=== PATIENT | female | born 1990 | race Two or more races ===

== ENCOUNTER 2017-01-29 16:01 | Emergency (ER) | payer OTHER ==
[2017-01-29] MEDS ORDERED: Meperidine SYRINGE* 50 MG/ML IV ONE (16:42)
[2017-01-29] MEDS ORDERED: PROCHLORPERAZINE INJ 5 MG/ML 2 ML VIAL IV PRN (16:42)
[2017-01-29] MEDS ORDERED: PROCHLORPERAZINE INJ 5 MG/ML 2 ML VIAL ONE (17:16)
[2017-01-29 17:33] LABS: Hematocrit 38 % (35-47); Hemoglobin 12.9 g/dl (12.0-16.0); Mean Corpuscular HGB Conc 34 g/dl (31-36); Mean Corpuscular Hemoglobin 30 pg (27-31); Mean Corpuscular Volume 89 fL (80-97); Mean Platelet Volume 8 um3 (7.4-10.4); Red Blood Count 4.24 10^6/ul (4.0-5.4); Red Cell Distribution Width 13 % (10.5-15); White Blood Count 11.2 10^3/ul (3.5-10.8)
[2017-01-29 18:12] LABS: Urine Bacteria Absent (Absent); Urine Bilirubin Negative (Negative); Urine Glucose Negative (Negative); Urine Nitrite Negative (Negative)
--- NOTE | 2017-01-29 18:14 | RAD ---
INDICATION: Right upper quadrant pain. COMPARISON: There are no prior studies available for comparison. TECHNIQUE: Multiple real-time images of the right upper quadrant were obtained. FINDINGS: The gallbladder is contracted. The patient was not n.p.o. for the study. There is mild gallbladder wall thickening which is consistent with the contracted state. No gallstones or pericholecystic fluid is present. No positive sonographic Prater sign was noted. No intra or extrahepatic ductal distention is present. The common bile duct measured 0.4 cm in diameter. The liver is normal in size without significant focal abnormality. The pancreas is partially obscured by overlying bowel gas. The right kidney is normal in size without evidence for hydronephrosis. IMPRESSION: SLIGHTLY LIMITED STUDY DUE TO CONTRACTED GALLBLADDER OTHERWISE UNREMARKABLE EXAM.
[2017-01-29 18:38] LABS: Albumin 4.7 g/dL (3.2-5.2); BUN/Creatinine Ratio 17.4 (8-20); C Reactive Protein 5.18 mg/L (< 5.00); Calcium 9.5 mg/dL (8.6-10.3); EGFR African American 131.3 (>60); EGFR Non-African American 102.1 (>60); Globulin 3.4 g/dL (2-4); Potassium 5.3 mmol/L (3.5-5.0); Total Bilirubin 0.3 mg/dL (0.2-1.0); Total Protein 8.1 g/dL (6.4-8.9)
[2017-01-29 19:05] VITALS: BP 115/69
--- NOTE | 2017-01-29 19:12 | ED ---
Otilio Fang Nikita, scribed for Darius Velásquez MD on 01/29/17 at 1650 . Abdominal Pain/Female - HPI Summary HPI Summary: This patient is a 26 year old F presenting to ED with a chief complaint of upper abdominal pain since 1400. The patient rates the pain 7-8/10 in severity. Symptoms aggravated by nothing. Symptoms alleviated by nothing. Patient reports nausea. Pt has been watching what she ate; she had a sandwich earlier today. In November, pt had an US in [place] and was found with gallbladder sludge. - History of Current Complaint Chief Complaint: EDAbdPain Stated Complaint: ABD PAIN Time Seen by Provider: 01/29/17 16:35 Hx Obtained From: Patient Onset/Duration: Sudden Onset - 1400, Lasting Hours, Still Present Timing: Constant Severity Initially: Severe Severity Currently: Severe Pain Intensity: 8 Pain Scale Used: 0-10 Numeric Location: Other - Upper abdominal pain Radiates: No Aggravating Factor(s): Nothing Alleviating Factor(s): Nothing Associated Signs and Symptoms: Positive: Nausea Allergies/Adverse Reactions: Allergies Allergy/AdvReac Type Severity Reaction Status Date / Time No Known Allergies Allergy Verified 01/29/17 16:17 PMH/Surg Hx/FS Hx/Imm Hx Endocrine/Hematology History: Denies: Hx Diabetes Cardiovascular History: Denies: Hx Coronary Artery Disease, Hx Hypertension Infectious Disease History: No Infectious Disease History: Denies: Traveled Outside the US in Last 30 Days - Family History Known Family History: Negative: Cardiac Disease, Hypertension, Diabetes - Social History Alcohol Use: Rare Substance Use Type: Reports: None Smoking Status (MU): Light Every Day Tobacco Smoker Review of Systems Negative: Fever Positive: Abdominal Pain - Upper abdominal pain, Nausea All Other Systems Reviewed And Are Negative: Yes Physical Exam Triage Information Reviewed: Yes Vital Signs On Initial Exam: Initial Vitals Temp Pulse Resp BP Pulse Ox 97.9 F 70 16 159/71 100 01/29/17 16:11 01/29/17 16:11 01/29/17 16:11 01/29/17 16:11 01/29/17 16:11 Vital Signs Reviewed: Yes Appearance: Positive: Well-Appearing, No Pain Distress Skin: Positive: Warm, Skin Color Reflects Adequate Perfusion, Dry Head/Face: Positive: Normal Head/Face Inspection Eyes: Positive: Normal ENT: Positive: Normal ENT inspection Neck: Positive: Supple, Nontender Respiratory/Lung Sounds: Positive: Clear to Auscultation, Breath Sounds Present Cardiovascular: Positive: RRR Abdomen Description: Positive: Soft, Other: - Positive Prater's Sign Bowel Sounds: Positive: Present Musculoskeletal: Positive: Normal Neurological: Positive: Normal, Sensory/Motor Intact, Alert, Oriented to Person Place, Time, CN Intact II-III Psychiatric: Positive: Affect/Mood Appropriate - [place] Coma Scale Coma Scale Total: 15 Diagnostics - Vital Signs Vital Signs Temp Pulse Resp BP Pulse Ox 01/29/17 16:11 97.9 F 70 16 159/71 100 - Laboratory Lab Results: Lab Results 01/29/17 01/29/17 01/29/17 Range/Units 17:15 17:15 17:15 WBC 11.2 H (3.5-10.8) 10^3/ul RBC 4.24 (4.0-5.4) 10^6/ul Hgb 12.9 (12.0-16.0) g/dl Hct 38 (35-47) % MCV 89 (80-97) fL MCH 30 (27-31) pg MCHC 34 (31-36) g/dl RDW 13 (10.5-15) % Plt Count 356 (150-450) 10^3/ul MPV 8 (7.4-10.4) um3 Neut % (Auto) 66.0 (38-83) % Lymph % (Auto) 26.4 (25-47) % [place] % (Auto) 4.3 (1-9) % Eos % (Auto) 2.6 (0-6) % Baso % (Auto) 0.7 (0-2) % Absolute Neuts (auto) 7.4 (1.5-7.7) 10^3/ul Absolute Lymphs (auto) 2.9 (1.0-4.8) 10^3/ul Absolute Monos (auto) 0.5 (0-0.8) 10^3/ul Absolute Eos (auto) 0.3 (0-0.6) 10^3/ul Absolute Basos (auto) 0.1 (0-0.2) 10^3/ul Absolute Nucleated RBC 0.01 10^3/ul Nucleated RBC % 0 Sodium 136 (133-145) mmol/L Potassium 5.3 H (3.5-5.0) mmol/L Chloride 103 (101-111) mmol/L Carbon Dioxide 25 (22-32) mmol/L Anion Gap 8 (2-11) mmol/L BUN 12 (6-24) mg/dL Creatinine 0.69 (0.51-0.95) mg/dL Est GFR ( Amer) 131.3 (>60) Est GFR (Non-Af Amer) 102.1 (>60) BUN/Creatinine Ratio 17.4 (8-20) Glucose 94 (70-100) mg/dL Lactic Acid 0.8 (0.5-2.0) mmol/L Calcium 9.5 (8.6-10.3) mg/dL Total Bilirubin 0.30 (0.2-1.0) mg/dL AST 40 H (13-39) U/L ALT 20 (7-52) U/L Alkaline Phosphatase 79 (34-104) U/L C-Reactive Protein 5.18 H (< 5.00) mg/L Total Protein 8.1 (6.4-8.9) g/dL Albumin 4.7 (3.2-5.2) g/dL Globulin 3.4 (2-4) g/dL Albumin/Globulin Ratio 1.4 (1-3) Lipase 36 (11.0-82.0) U/L Beta HCG, Quant 0.90 mIU/mL Urine Color Urine Appearance Urine pH (5-9) Ur Specific [employer] (1.010-1.030) Urine Protein (Negative) Urine Ketones (Negative) Urine Blood (Negative) Urine Nitrate (Negative) Urine Bilirubin (Negative) Urine Urobilinogen (Negative) Ur Leukocyte Esterase (Negative) Urine WBC (Auto) (Absent) Urine RBC (Auto) (Absent) Ur Squamous Epith Cells (Absent) Amorphous Crystals (Absent) Urine Bacteria (Absent) Urine Glucose (Negative) 01/29/17 Range/Units 17:40 WBC (3.5-10.8) 10^3/ul RBC (4.0-5.4) 10^6/ul Hgb (12.0-16.0) g/dl Hct (35-47) % MCV (80-97) fL MCH (27-31) pg MCHC (31-36) g/dl RDW (10.5-15) % Plt Count (150-450) 10^3/ul MPV (7.4-10.4) um3 Neut % (Auto) (38-83) % Lymph % (Auto) (25-47) % [place] % (Auto) (1-9) % Eos % (Auto) (0-6) % Baso % (Auto) (0-2) % Absolute Neuts (auto) (1.5-7.7) 10^3/ul Absolute Lymphs (auto) (1.0-4.8) 10^3/ul Absolute Monos (auto) (0-0.8) 10^3/ul Absolute Eos (auto) (0-0.6) 10^3/ul Absolute Basos (auto) (0-0.2) 10^3/ul Absolute Nucleated RBC 10^3/ul Nucleated RBC % Sodium (133-145) mmol/L Potassium (3.5-5.0) mmol/L Chloride (101-111) mmol/L Carbon Dioxide (22-32) mmol/L Anion Gap (2-11) mmol/L BUN (6-24) mg/dL Creatinine (0.51-0.95) mg/dL Est GFR ( Amer) (>60) Est GFR (Non-Af Amer) (>60) BUN/Creatinine Ratio (8-20) Glucose (70-100) mg/dL Lactic Acid (0.5-2.0) mmol/L Calcium (8.6-10.3) mg/dL Total Bilirubin (0.2-1.0) mg/dL AST (13-39) U/L ALT (7-52) U/L Alkaline Phosphatase (34-104) U/L C-Reactive Protein (< 5.00) mg/L Total Protein (6.4-8.9) g/dL Albumin (3.2-5.2) g/dL Globulin (2-4) g/dL Albumin/Globulin Ratio (1-3) Lipase (11.0-82.0) U/L Beta HCG, Quant mIU/mL Urine Color Yellow Urine Appearance Cloudy Urine pH 7.0 (5-9) Ur Specific [employer] 1.011 (1.010-1.030) Urine Protein Negative (Negative) Urine Ketones Negative (Negative) Urine Blood 1+ H (Negative) Urine Nitrate Negative (Negative) Urine Bilirubin Negative (Negative) Urine Urobilinogen Negative (Negative) Ur Leukocyte Esterase Negative (Negative) Urine WBC (Auto) Absent (Absent) Urine RBC (Auto) Absent (Absent) Ur Squamous Epith Cells Present H (Absent) Amorphous Crystals Present H (Absent) Urine Bacteria Absent (Absent) Urine Glucose Negative (Negative) Result Diagrams: 01/29/17 17:15 01/29/17 17:15 Lab Statement: Any lab studies that have been ordered have been reviewed, and results considered in the medical decision making process. - Ultrasound No standard instances Ultrasound Interpretation Completed By: Radiologist - Gall bladder US: SLIGHTLY LIMITED STUDY DUE TO CONTRACTED GALLBLADDER OTHERWISE UNREMARKABLE EXAM. ED physician has reviewed this radiology report and agrees. Re-Evaluation - Re-Evaluation First Eval Re-Evaluation Time: 18:50 Change: Improved Comment: Pt is feeling better. Discussed discharge plan. Abdominal Pain Fem Course/Dx - Course Course Of Treatment: Ms. Conway presented with RUQ pain and tenderness. Her labs were reasonable and her U/S showed no sign of acute cholecystitis but was a bit contracted with sludge. She felt completely improved with a bit of pain medication and was D/C'd to F/U. - Diagnoses Provider Diagnoses: Biliary colic Discharge - Discharge Plan Condition: Stable Disposition: HOME Patient Education Materials: Biliary Colic (ED) Referrals: Acosta Greenfield MD [Medical Doctor] - 3 Days The documentation as recorded by the Otilio meek Nikita accurately reflects the service I personally performed and the decisions made by , Darius Velásquez MD.
== END 2017-01-29 19:06 | disposition home or self-care (01) ==
LOC: ED 16:01
DX: K80.50 Calculus of bile duct without cholangitis or cholecystitis without obstruction (principal); Z72.0 Tobacco use
CPT/HCPCS: 36415; 76705; 80053; 81003; 81015; 83605; 83690; 84702; 85025; 86140; 96374; 96375; 99282; J0780; J2310

== ENCOUNTER 2018-01-02 01:50 | Emergency (ER) | payer OTHER ==
[2018-01-02] MEDS ORDERED: NS 0.9% 1000 ML* 1,000 ML IV ONE (02:08)
[2018-01-02] MEDS ORDERED: Metoclopramide IV* 5 MG/ML 2 ML VIAL IV ONE (02:08)
[2018-01-02] MEDS ORDERED: Morphine VIAL* 10 MG/ML 1 ML VIAL IV ONE (02:08)
[2018-01-02 02:27] LABS: ABS Basophils 0.1 10^3/ul (0-0.2); ABS Eosinophils 0.2 10^3/ul (0-0.6); ABS Lymphocytes 3.3 10^3/ul (1.0-4.8); ABS Monocytes 0.6 10^3/ul (0-0.8); ABS Neutrophils 7.1 10^3/ul (1.5-7.7); ABS Nucleated RBC 0 10^3/ul; Eosinophil % 2.1 % (0-6); Hematocrit 37 % (35-47); Hemoglobin 12.4 g/dl (12.0-16.0); Mean Corpuscular HGB Conc 34 g/dl (31-36); Mean Corpuscular Hemoglobin 30 pg (27-31); Mean Corpuscular Volume 89 fL (80-97); Mean Platelet Volume 6.6 um3 (7.4-10.4); Nucleated Red Blood Cells % 0; Platelet Count 350 10^3/ul (150-450); Red Blood Count 4.14 10^6/ul (4.00-5.40); Red Cell Distribution Width 12 % (10.5-15); White Blood Count 11.4 10^3/ul (3.5-10.8)
--- NOTE | 2018-01-02 04:26 | ED ---
Abdominal Pain/Female - HPI Summary HPI Summary: This is scribe Toño Land documenting for attending Stephen Castañeda MD. Patient is a 27 y/o F BIBA w/ c/o RUQ abdominal pain onsetting 1999 on . Patient claims Hx of gallstones. She states she was diagnosed in last February via US. She reports three different onsets of gallstones since then. RUQ pain radiates to right shoulder and right upper back. N/V are also reported. Urinary problems are denied. On triage, pain is rated 10/10 and nothing is noted to alleviate/aggravate Sx. Patient states she took ibuprofen before coming to ED. She also reports that she had a burger for dinner tonight. Home medications and allergies are reviewed. I, Dr. Castañeda, personally performed the services described in this documentation as scribed in my presence and it is both accurate and complete. - History of Current Complaint Chief Complaint: EDAbdPain Stated Complaint: ABD PAIN Time Seen by Provider: 01/02/18 01:59 Hx Obtained From: Patient Onset/Duration: Lasting Hours - onset 01/01/18 at around 1999, Still Present Timing: Constant Severity Currently: Severe Pain Intensity: 10 Pain Scale Used: 0-10 Numeric - 10/10 Location: Discrete At: RUQ Radiates: Yes Radiates to: Back - upper right, Other - right shoulder Aggravating Factor(s): Nothing Alleviating Factor(s): Nothing Associated Signs and Symptoms: Positive: Nausea, Vomiting. Negative: Urinary Symptoms Allergies/Adverse Reactions: Allergies Allergy/AdvReac Type Severity Reaction Status Date / Time No Known Allergies Allergy Verified 01/29/17 16:17 PMH/Surg Hx/FS Hx/Imm Hx Endocrine/Hematology History: Denies: Hx Diabetes Cardiovascular History: Denies: Hx Coronary Artery Disease, Hx Hypertension History: Reports: Other Problems/Disorders - Hx of gallstones is reported Infectious Disease History: No Infectious Disease History: Denies: Traveled Outside the [place] in Last 30 Days - Family History Known Family History: Negative: Cardiac Disease, Hypertension, Diabetes - Social History Alcohol Use: Occasionally Substance Use Type: Reports: None Smoking Status (MU): Light Every Day Tobacco Smoker Review of Systems Positive: Abdominal Pain - RUQ , Vomiting, Nausea Positive: other - NEGATIVE: urinary symptoms Positive: Other - right shoulder and right upper back pain All Other Systems Reviewed And Are Negative: Yes Physical Exam - Summary Physical Exam Summary: VITAL SIGNS: Reviewed. GENERAL: Patient is a well-developed and nourished female who is lying comfortable in the stretcher. Patient is not in any acute respiratory distress. HEAD AND FACE: No signs of trauma. No ecchymosis, hematomas or skull depressions. No sinus tenderness. EYES: PERRLA, EOMI x 2, No injected conjunctiva, no nystagmus. EARS: Hearing grossly intact. Ear canals and tympanic membranes are within normal limits. MOUTH: Oropharynx within normal limits. NECK: Supple, trachea is midline, no adenopathy, no JVD, no carotid bruit, no c- spine tenderness, neck with full ROM. CHEST: Symmetric, no tenderness at palpation LUNGS: Clear to auscultation bilaterally. No wheezing or crackles. CVS: Regular rate and rhythm, S1 and S2 present, no murmurs or gallops appreciated. ABDOMEN: Soft, RUQ tenderness is noted. No signs of distention. No rebound no guarding, and no masses palpated. Bowel sounds are normal. EXTREMITIES: FROM in all major joints, no edema, no cyanosis or clubbing. NEURO: Alert and oriented x 3. No acute neurological deficits. Speech is normal and follows commands. SKIN: Dry and warm Triage Information Reviewed: Yes Vital Signs On Initial Exam: Initial Vitals Temp Pulse Resp BP Pulse Ox 97.8 F 81 22 128/68 98 01/02/18 01:52 01/02/18 01:52 01/02/18 01:52 01/02/18 01:52 01/02/18 01:52 Vital Signs Reviewed: Yes Diagnostics - Vital Signs Vital Signs Temp Pulse Resp BP Pulse Ox 01/02/18 02:21 20 01/02/18 01:52 97.8 F 81 22 128/68 98 - Laboratory Lab Results: Lab Results 01/02/18 01/02/18 Range/Units 02:21 02:21 WBC 11.4 H (3.5-10.8) 10^3/ul RBC 4.14 (4.00-5.40) 10^6/ul Hgb 12.4 (12.0-16.0) g/dl Hct 37 (35-47) % MCV 89 (80-97) fL MCH 30 (27-31) pg MCHC 34 (31-36) g/dl RDW 12 (10.5-15) % Plt Count 350 (150-450) 10^3/ul MPV 6.6 L (7.4-10.4) um3 Neut % (Auto) 62.7 (38-83) % Lymph % (Auto) 29.0 (25-47) % [place] % (Auto) 5.7 (0-7) % Eos % (Auto) 2.1 (0-6) % Baso % (Auto) 0.5 (0-2) % Absolute Neuts (auto) 7.1 (1.5-7.7) 10^3/ul Absolute Lymphs (auto) 3.3 (1.0-4.8) 10^3/ul Absolute Monos (auto) 0.6 (0-0.8) 10^3/ul Absolute Eos (auto) 0.2 (0-0.6) 10^3/ul Absolute Basos (auto) 0.1 (0-0.2) 10^3/ul Absolute Nucleated RBC 0 10^3/ul Nucleated RBC % 0 Sodium 136 (135-145) mmol/L Potassium 3.4 L (3.5-5.0) mmol/L Chloride 103 (101-111) mmol/L Carbon Dioxide 25 (22-32) mmol/L Anion Gap 8 (2-11) mmol/L BUN 14 (6-24) mg/dL Creatinine 0.71 (0.51-0.95) mg/dL Est GFR ( Amer) 118.6 (>60) Est GFR (Non-Af Amer) 98.0 (>60) BUN/Creatinine Ratio 19.7 (8-20) Glucose 108 H (70-100) mg/dL Calcium 9.3 (8.6-10.3) mg/dL Magnesium 2.0 (1.9-2.7) mg/dL Total Bilirubin 0.30 (0.2-1.0) mg/dL AST 17 (13-39) U/L ALT 11 (7-52) U/L Alkaline Phosphatase 74 (34-104) U/L C-Reactive Protein 4.72 (<8.01) mg/L Total Protein 7.4 (6.4-8.9) g/dL Albumin 4.4 (3.2-5.2) g/dL Globulin 3.0 (2-4) g/dL Albumin/Globulin Ratio 1.5 (1-3) Amylase 36 (29-103) U/L Lipase 29 (11.0-82.0) U/L Beta HCG, Quant < 0.60 mIU/mL Result Diagrams: 01/02/18 02:21 01/02/18 02:21 Lab Statement: Any lab studies that have been ordered have been reviewed, and results considered in the medical decision making process. Re-Evaluation - Re-Evaluation First Eval Re-Evaluation Time: 04:20 Change: Improved Comment: Patient will be discharged to home and follow up with Dr. Aguilar for a surgery consult in 1-2 days. Patient is agreeable with plan. Abdominal Pain Fem Course/Dx - Course Course Of Treatment: Patient is a 27 y/o F BIBA w/ c/o RUQ abdominal pain onsetting 1999 on 01/01/18. Patient claims Hx of gallstones. She states she was diagnosed in last February via US. She reports three different onsets of gallstones since then. RUQ pain radiates to right shoulder and right upper back. N/V are also reported. Urinary problems are denied. On triage, pain is rated 10/10 and nothing is noted to alleviate/aggravate Sx. Patient states she took ibuprofen before coming to ED. She also reports that she had a burger for dinner tonight. Physical exam revealed RUQ tenderness. During ED course, patient was given fluids, morphine sulfate 6 mg IV ED ONCE, and metoclopramide Hcl Reglan IV, 10 mg IV ED ONCE. Labs showed WBC 11.4 H, RBC 4.14, MPV 6.6 L, potassium 3.4 L, glucose 108 H. At 0420, patient was re-evaluated. Patient will be discharged to home and diagnosed with biliary colic. She was instructed to follow up with Dr. Aguilar for a surgery consult in 1-2 days. Patient is agreeable with plan and all questions were answered to patient's satisfaction. - Diagnoses Provider Diagnoses: Biliary colic Discharge - Sign-Out/Discharge Documenting (check all that apply): Patient Departure - discharge - Discharge Plan Condition: Stable Disposition: HOME Patient Education Materials: Biliary Colic (ED), Gallstones (ED) Referrals: Nehemias Aguilar MD [Medical Doctor] - Additional Instructions: Follow up with Dr. Aguilar in 1-2 days for surgery consult. Return to ED for any new or worsening symptoms.
[2018-01-02 04:41] VITALS: BP 108/68
== END 2018-01-02 04:42 | disposition home or self-care (01) ==
LOC: ED 01:50
DX: K80.50 Calculus of bile duct without cholangitis or cholecystitis without obstruction (principal); Z72.0 Tobacco use
CPT/HCPCS: 36415; 80053; 82150; 83690; 83735; 84702; 85025; 86140; 96361; 96374; 96375; 99283; J2270; J2765

== ENCOUNTER 2018-03-29 19:29 | Emergency (ER) | payer OTHER ==
[2018-03-29 19:56] VITALS: BP 130/84
--- NOTE | 2018-03-29 20:35 | UC ---
Abdominal Pain Female HPI - HPI Summary HPI Summary: 27 year old female patient presents with onset of epigastric pain today. States she has had 4 episodes of this pain in the past 10 days. Was evaluated at [facility] yesterday, was started on ranitidine, and had lab work performed. Describes pain as a "grabbing" pain that radiates strait through to her back. She has had a couple episodes of vomiting dark colored emesis. States she had gone 3 days without a BM abut today had a small, hard, dark black colored BM. Symptoms associated with chills and belching. Denies fever, heartburn, chest pain, shortness of breath, dysuria, frequency, urgency, hematuria, or vaginal discharge. History of cholelithiasis. - History of Current Complaint Chief Complaint: UCAbdominalPain Stated Complaint: ABDOMINAL PAIN Time Seen by Provider: 03/29/18 20:28 Hx Obtained From: Patient Hx Last Menstrual Period: 03/03/18 ?: No Onset/Duration: Lasting Days - 4 episodes in 10 days Severity Currently: Moderate Pain Intensity: 7 Location: Epigastric Radiates to: Back Character: Other - Grabbing Aggravating Factor(s): Nothing Alleviating Factor(s): Nothing Associated Signs and Symptoms: Positive: Constipation, Decreased Appetite, Nausea, Vomiting. Negative: Fever, Chest Pain, Blood in Stool, Urinary Symptoms , Vaginal Bleeding, Vaginal Discharge, Diarrhea Allergies/Adverse Reactions: Allergies Allergy/AdvReac Type Severity Reaction Status Date / Time latex Allergy Severe Rash Verified 03/29/18 20:03 Home Medications: Home Medications raNITIdine HCl [Ranitidine HCl] 150 mg PO BID 03/29/18 [History Confirmed ] PMH/Surg Hx/FS Hx/Imm Hx GI/ History: Gall Bladder Disease - Cholelythiasis - Surgical History Surgical History: None - Family History Family History: Noncontributory - Social History Occupation: Employed Full-time Lives: With Family Alcohol Use: Occasionally Substance Use Type: None Smoking Status (MU): Light Every Day Tobacco Smoker Review of Systems Constitutional: Chills Skin: Negative Respiratory: Negative Cardiovascular: Negative Gastrointestinal: Abdominal Pain, Vomiting, Nausea Genitourinary: Negative Is Patient Immunocompromised?: No All Other Systems Reviewed And Are Negative: Yes Physical Exam Triage Information Reviewed: Yes Appearance: No Pain Distress, Well-Nourished Vital Signs: Initial Vital Signs Temp 98.5 F 03/29/18 19:48 Pulse 79 03/29/18 19:48 Resp 16 03/29/18 19:48 BP 130/84 03/29/18 19:48 Pulse Ox 99 03/29/18 19:48 Vital Signs Reviewed: Yes Respiratory: Positive: Lungs clear, Normal breath sounds, No respiratory distress Cardiovascular: Positive: RRR, No Murmur Abdomen Description: Positive: No Organomegaly, Soft, Other: - RUQ, epigastric without rebound or guarding. Negative: CVA Tenderness (R), CVA Tenderness (L), Distended, Guarding Bowel Sounds: Positive: Present Neurological: Positive: Alert Skin Exam: Normal Abd Pain Female Course/Dx - Course Course Of Treatment: 27 year old female with known history of cholelithiasis presents with epigastric pain. She has had 4 episodes in the past 10 days. Pain radiates through to her back. Reports dark colored emesis and stool. Seen by [facility] yesterday, started on ranitidine, and had lab work performed. Afebrile. VSS. She has some epigastric and RUQ tenderness on exam. With her history and symptoms recommend further evaluation in the emergency room. Verbalizes understanding and elects to transfer via private vehicle. - Differential Dx/Diagnosis Differential Diagnosis: Gall Bladder Disease, Pancreatitis, Peptic Ulcer Disease Provider Diagnoses: Abdominal pain Discharge - Sign-Out/Discharge Documenting (check all that apply): Patient Departure All imaging exams completed and their final reports reviewed: No Studies - Discharge Plan Condition: Stable Disposition: HOME-RECOMMEND TO ED Patient Education Materials: Acute Abdominal Pain (ED) Referrals: No Primary Care Phys,NOPCP [Primary Care Provider] - Additional Instructions: Based on your history of gall stones, your persistent symptoms, and exam I am recommending that you go directly to the emergency room for further evaluation. Go directly to the emergency room. Do NOT eat or drink anything until you have been evaluated in the emergency room. - Billing Disposition and Condition Condition: STABLE Disposition: Home-Recommend to ED - Attestation Statements Provider Attestation: Per institutional requirements, I have reviewed the chart, however, I was not consulted specifically or made aware of this patient by the midlevel provider. I did not personally evaluate, interact with , or disposition this patient.
== END 2018-03-29 21:00 | disposition home health service (06) ==
LOC: UCEAST 19:29
DX: R10.13 Epigastric pain (principal); R11.2 Nausea with vomiting, unspecified; Z91.040 Latex allergy status; F17.200 Nicotine dependence, unspecified, uncomplicated
CPT/HCPCS: 99212; G0463

== ENCOUNTER 2018-07-31 04:36 | Emergency (ER) | payer OTHER ==
[2018-07-31] MEDS ORDERED: Metoclopramide IV* 5 MG/ML 2 ML VIAL IV SLOW PU ONE (04:47)
[2018-07-31] MEDS ORDERED: NS 0.9% 1000 ML** 1,000 ML IV ONE (04:47)
--- NOTE | 2018-07-31 04:47 | ED ---
GI/ HPI - HPI Summary HPI Summary: Patient is a 27 y/o F presenting to ED with complaints of RUQ pain, N/V. Patient had an episode of Sx yesterday, patient took Tylenol, Sx resolved. She states that she had another episode of Sx today at 0100. Patient notes radiation of pain to back as well. Fever is denied. PMHx of gallstones, diagnosed last March, states that this is the 4th "attack" that she has had since then. Patient states that she has consulted with surgery and that she was advised to have consult with GI. Gallbladder is still present. On triage, pain is rated 9/10. Nothing is noted to aggravate/alleviate Sx. Home medications and allergies are reviewed. - History of Current Complaint Time Seen by Provider: 07/31/18 04:40 Stated Complaint: ABD PAIN Hx Obtained From: Patient Hx Last Menstrual Period: 03/03/18 Onset/Duration: Started Hours Ago - present Sx onset at 0100, Started Days Ago - patient had similar episode of Sx yesterday, Still Present Timing: Intermittent, Lasting Hours - present Sx onset at 0100, Lasting Days - patient had similar episode of Sx yesterday Current Severity: Severe - 9/10 Location of Pain: RUQ Pain Radiates to: Back Associated Signs and Symptoms: Positive: Back Pain, Nausea, Vomiting, Abdominal Pain. Negative: Fever Aggravating Factor(s): Nothing Alleviating Factor(s): Nothing - Allergy/Home Medications Allergies/Adverse Reactions: Allergies Allergy/AdvReac Type Severity Reaction Status Date / Time latex Allergy Severe Rash Verified 03/29/18 20:03 PMH/Surg Hx/FS Hx/Imm Hx Endocrine/Hematology History: Denies: Hx Diabetes Cardiovascular History: Denies: Hx Coronary Artery Disease, Hx Hypertension History: Reports: Other Problems/Disorders - Hx of gallstones is reported Sensory History: Denies: Hx Legally Blind, Hx Deafness Opthamlomology History: Denies: Hx Legally Blind EENT History: Denies: Hx Deafness - Family History Known Family History: Negative: Cardiac Disease, Hypertension, Diabetes - Social History Alcohol Use: Occasionally Substance Use Type: Reports: None Smoking Status (MU): Light Every Day Tobacco Smoker Review of Systems Negative: Fever Positive: Abdominal Pain, Vomiting, Nausea Musculoskeletal: Other - POSITIVE - BACK PAIN All Other Systems Reviewed And Are Negative: Yes Physical Exam - Summary Physical Exam Summary: VITAL SIGNS: Reviewed. GENERAL: Patient is a well-developed and nourished female who is lying comfortable in the stretcher. Patient is not in any acute respiratory distress. HEAD AND FACE: No signs of trauma. No ecchymosis, hematomas or skull depressions. No sinus tenderness. EYES: PERRLA, EOMI x 2, No injected conjunctiva, no nystagmus. EARS: Hearing grossly intact. Ear canals and tympanic membranes are within normal limits. MOUTH: Oropharynx within normal limits. NECK: Supple, trachea is midline, no adenopathy, no JVD, no carotid bruit, no c- spine tenderness, neck with full ROM. CHEST: Symmetric, no tenderness at palpation LUNGS: Clear to auscultation bilaterally. No wheezing or crackles. CVS: Regular rate and rhythm, S1 and S2 present, no murmurs or gallops appreciated. ABDOMEN: Soft, RUQ tenderness. No signs of distention. No rebound no guarding, and no masses palpated. Bowel sounds are normal. EXTREMITIES: FROM in all major joints, no edema, no cyanosis or clubbing. NEURO: Alert and oriented x 3. No acute neurological deficits. Speech is normal and follows commands. SKIN: Dry and warm Triage Information Reviewed: Yes Vital Signs On Initial Exam: Initial Vitals Temp Pulse Resp BP Pulse Ox 98.7 F 72 18 132/86 98 07/31/18 04:41 07/31/18 04:41 07/31/18 04:41 07/31/18 04:41 07/31/18 04:41 Vital Signs Reviewed: Yes Diagnostics - Laboratory Result Diagrams: 07/31/18 05:06 07/31/18 05:06 Lab Statement: Any lab studies that have been ordered have been reviewed, and results considered in the medical decision making process. Re-Evaluation - Re-Evaluation First Eval Re-Evaluation Time: 05:52 Change: Improved Comment: Patient reports improvement in Sx. WBC, LFTs are normal, patient will be discharged to home and follow up with PCP and surgery. Patient is agreeable with this. GIGU Course/Dx - Course Course Of Treatment: Patient is a 27 y/o F presenting to ED with complaints of RUQ pain, N/V. Patient had an episode of Sx yesterday, patient took Tylenol, Sx resolved. She states that she had another episode of Sx today at 0100. Patient notes radiation of pain to back as well. Fever is denied. PMHx of gallstones, diagnosed last March, states that this is the 4th "attack" that she has had since then. Patient states that she has consulted with surgery and that she was advised to have consult with GI. Gallbladder is still present. On physical exam , RUQ tenderness is noted. Labs showed WBC 11.5, MPV 7, BUN/creatinine 20.9, glucose 103, lactic acid 1, lipase 28, beta HCG < 0.60. During ED course, patient received Reglan 10 mg IV SLOW PU, morphine 4 mg IV, Protonix 40 mg IV, fluids. Patient reports improvement in Sx. WBC, LFTs are normal, patient will be discharged to home with prescriptions for Reglan, Protonix and Percocet and follow up with PCP and surgery. Patient is agreeable with this. - Diagnoses Provider Diagnoses: Cholelithiasis Discharge - Sign-Out/Discharge Documenting (check all that apply): Patient Departure - discharge Patient Received Moderate/Deep Sedation with Procedure: No - NO PROCEDURES DONE - Discharge Plan Condition: Stable Disposition: HOME Prescriptions: Metoclopramide TAB* [Reglan TAB*] 10 mg PO Q6H PRN #20 tab PRN Reason: Nausea/Vomiting oxyCODONE/Acetamin 5/325 MG* [Percocet 5/325 TAB*] 1 tab PO Q6H PRN #14 tab MDD 4 PRN Reason: Pain Pantoprazole TAB * [Protonix TAB*] 40 mg PO DAILY #30 tab Patient Education Materials: Gallstones (ED) Referrals: Felipe Moon MD [Medical Doctor] - 2 Days Samira Nascimento [Primary Care Provider] - 2 Days Additional Instructions: RETURN TO THE EMERGENCY DEPARTMENT FOR CHANGING OR WORSENING SYMPTOMS. FOLLOW UP WITH PRIMARY CARE PHYSICIAN AND SURGEON IN 1-2 DAYS. - Attestation Statements Document Initiated by Scribe: Yes Documenting Scribe: TOMEKA SPRAGUE Provider For Whom Scribe is Documenting (Include Credential): JENNIFER ANGEL MD Scribe Attestation: TOMEKA Fang, scribed for JENNIFER ANGEL MD on 07/31/18 at 0603. Status of Scribe Document: Ready
[2018-07-31] MEDS ORDERED: Morphine VIAL* 10 MG/ML 1 ML VIAL IV ONE (04:48)
[2018-07-31 05:13] LABS: ABS Basophils 0.1 10^3/ul (0-0.2); ABS Eosinophils 0.3 10^3/ul (0-0.6); ABS Lymphocytes 2.6 10^3/ul (1.0-4.8); ABS Monocytes 0.7 10^3/ul (0-0.8); ABS Neutrophils 7.7 10^3/ul (1.5-7.7); ABS Nucleated RBC 0 10^3/ul; Eosinophil % 2.8 %; Hematocrit 37 % (35-47); Hemoglobin 12.4 g/dl (12.0-16.0); Mean Corpuscular HGB Conc 33 g/dl (31-36); Mean Corpuscular Hemoglobin 30 pg (27-31); Mean Corpuscular Volume 88 fL (80-97); Nucleated Red Blood Cells % 0; Platelet Count 304 10^3/ul (150-450); Red Blood Count 4.22 10^6/ul (4.00-5.40); Red Cell Distribution Width 13 % (10.5-15); White Blood Count 11.5 10^3/ul (3.5-10.8)
[2018-07-31 05:37] LABS: ALT 20 U/L (7-52); AST 15 U/L (13-39); Albumin 4.3 g/dL (3.2-5.2); Albumin/Globulin Ratio 1.5 (1-3); Alkaline Phosphatase 64 U/L (34-104); Anion Gap 6 mmol/L (2-11); BUN/Creatinine Ratio 20.9 (8-20); Blood Urea Nitrogen 14 mg/dL (6-24); C Reactive Protein 5.02 mg/L (<8.01); CO2 Carbon Dioxide 25 mmol/L (22-32); Calcium 8.8 mg/dL (8.6-10.3); Chloride 105 mmol/L (101-111); EGFR African American 126.8 (>60); EGFR Non-African American 104.8 (>60); Globulin 2.8 g/dL (2-4); Glucose 103 mg/dL (70-100); Potassium 3.5 mmol/L (3.5-5.0); Sodium 136 mmol/L (135-145); Total Protein 7.1 g/dL (6.4-8.9)
[2018-07-31 05:43] LABS: HCG Pregnancy < 0.60 mIU/mL
[2018-07-31] MEDS ORDERED: Pantoprazole IV* 40 MG IV ONE (05:52)
[2018-07-31 06:25] VITALS: BP 112/64
== END 2018-07-31 06:24 | disposition home or self-care (01) ==
LOC: ED 04:36
DX: K80.20 Calculus of gallbladder without cholecystitis without obstruction (principal); Z32.02 Encounter for pregnancy test, result negative; Z91.040 Latex allergy status; F17.200 Nicotine dependence, unspecified, uncomplicated
CPT/HCPCS: 36415; 80053; 83605; 83690; 83735; 84702; 85025; 86140; 96374; 96375; 99283; J2270; J2765

== ENCOUNTER 2018-08-20 06:56 | Day surgery (SDC) | payer OTHER ==
[~2018-08-20 06:56] MED LIST: Buffered Lidocaine 1% SYRIN* 1 ML/SYRINGE INTRADERM ONE; Lactated Ringers 1000 ML Bag* 1,000 ML IV SCH
[2018-08-20] MEDS ORDERED: Propofol* 10 MG/ML 20 ML BTL ONE (07:54)
[2018-08-20] MEDS ORDERED: Lidocaine 2% PF * 5 ML VIAL ONE (07:54)
[2018-08-20] MEDS ORDERED: Midazolam* 1 MG/ML 2 ML VIAL (2 MG) ONE (07:54)
[2018-08-20] MEDS ORDERED: Rocuronium* 10 MG/ML VIAL ONE (07:54)
[2018-08-20] MEDS ORDERED: ceFAZolin 2 GM in NS PREMIX(*) 2 GM/100 ML BAG IVPB ONE (07:55)
[2018-08-20] MEDS ORDERED: fentaNYL* 50 MCG/ML 2 ML VIAL (100 MCG VIAL) ONE ×2 (07:55→10:00)
[2018-08-20] MEDS ORDERED: oxyCODONE TAB* 5 MG TAB PO PRN (08:24)
[2018-08-20] MEDS ORDERED: DiMENhydriNATE IV* 50 MG/ML VIAL IV PUSH PRN (08:24)
[2018-08-20] MEDS ORDERED: Acetaminophen TAB* 325 MG PO PRN (08:24)
[2018-08-20] MEDS ORDERED: fentaNYL* 50 MCG/ML 2 ML VIAL (100 MCG VIAL) IV PRN (08:24)
[2018-08-20] MEDS ORDERED: Naloxone* 0.4 MG/ML 1 ML VIAL IV PRN (08:24)
[2018-08-20] MEDS ORDERED: Ondansetron INJ* 2 MG/ML VIAL ONE (08:59)
[2018-08-20] MEDS ORDERED: Dexamethasone IV* 4 MG/ML 1 ML (4 MG) ONE (08:59)
[2018-08-20] MEDS ORDERED: Metoclopramide IV* 5 MG/ML 2 ML VIAL ONE (08:59)
[2018-08-20] MEDS ORDERED: Ketorolac INJ* 30 MG/ML 1 ML VIAL ONE (08:59)
[2018-08-20] MEDS ORDERED: oxyCODONE TAB* 5 MG TAB ONE (10:20)
--- NOTE | 2018-08-20 10:48 | OP ---
CC: Dr. Felipe Moon; [facility] OPERATIVE REPORT: DATE OF OPERATION: 08/20/18 DATE OF : 88 ATTENDING SURGEON: Felipe Moon MD. [employer] OPERATOR: IAN Mukherjee. PRE-OP DIAGNOSIS: Cholecystitis. POST-OP DIAGNOSIS: Cholecystitis. OPERATIVE PROCEDURE: Laparoscopic cholecystectomy. INDICATIONS FOR PROCEDURE: Cholecystitis, chronic. Risks of surgery included but not limited to ble eding, infection, injury to intraabdominal contents including the bowel, the bile duct, cystic duct l eak, the liver, and others were explained to the patient, who seemed to understand and agreed to the procedure and all questions were answered. DESCRIPTION OF PROCEDURE: The patient was taken to the operating room, placed supine. Preoperative antibiotics had been given. After the successful induction of general endotracheal anesthesia, the a bdomen was prepped and draped in sterile fashion. A time-out was performed indicating correct patien t, correct procedure. A subxiphoid trocar was placed under direct visualization of the camera using a bladeless Optiview trocar. Pneumoperitoneum was achieved at 15 mmHg. A camera was placed in the ab domen. The abdomen was scanned. There was no obvious injury from trocar placement. A 12-mm infraum bilical and two right-sided 5-mm trocars were placed, all under direct visualization of the camera. The abdomen was scanned, all appeared normal. Some adhesions were noted to the gallbladder. The fun dus of the gallbladder was grasped and retracted up into the liver. The cystic duct was identified, isolated, clipped, and divided. The artery was identified, isolated, clipped, and divided. The gall bladder was removed from the hepatic bed using scissors with cautery. It was placed into an Endobag and removed from umbilical port site. The right upper quadrant was irrigated and aspirated dry. EBL was minimal. Hemostasis was intact. The clips were in place. The abdomen was scanned. No obvious injuries were noted. Pneumoperitoneum was aspirated out of the abdomen and the trocars were removed , and the skin was closed with Monocryl and glue. The patient tolerated the procedure well. She was extubated and taken to Recovery in stable condition. [id number]/[facility] #: [id number]
[2018-08-20 11:07] VITALS: BP 110/63
== END 2018-08-20 11:33 | disposition home or self-care (01) ==
LOC: OR 06:56
PROVIDERS: ATTEND Surgery
DX: K80.10 Calculus of gallbladder with chronic cholecystitis without obstruction (principal); Z72.0 Tobacco use
CPT/HCPCS: 81025; 88304; A9270-GY; J0690; J1100; J1885; J2250; J2405; J2704; J2765; J3010